=== PATIENT | female | born 1945 | race Caucasian/White ===

== ENCOUNTER 2021-05-27 11:55 | Emergency (ER) | payer MEDICARE ==
[~2021-05-27 11:55] MED LIST: ASPIRIN EC81 MG PO; CIPRO500 MG PO; CRESTOR 10 MG T10 MG PO; DIFLUCAN150 MG PO; FERROUS SULFAT325 M2 PO; KEFLEX CAP 500500 MG PO; LOPRESSOR 25 MG25 MG PO; PRINIVIL20 MG PO; THERAGRAN M TAB1 EA PO
[2021-05-27 13:20] LABS: HEMOGLOBIN 12.8 gm/dl (12.3-15.3); RED BLOOD COUNT 4.21 M/UL (4.00-5.10); WHITE BLOOD COUNT 7.6 K/UL (4.5-11.0)
[2021-05-27] MEDS ORDERED: OMNICEF 300 MG300 MG PO (15:24)
== END 2021-05-27 15:35 | disposition home or self-care (01) ==
LOC: ER1 11:55
PROVIDERS: Family Medicine
DX: N39.0 Urinary tract infection, site not specified (principal); I10 Essential (primary) hypertension; Z88.5 Allergy status to narcotic agent
CPT/HCPCS: 80053; 81001; 82150; 83690; 85025; 99284; Q9967